=== PATIENT | female | born 1955 | race Caucasian/White ===

== ENCOUNTER → 2020-11-06 | Outpatient (CLI) | payer MEDICARE ==
[~2020-11-06] MED LIST: FUROSEMIDE40 MG PO; KLOR-CON M1010 MEQ PO; LEVOTHYROXINE50 MCG PO; LISINOPRIL2.5 MG PO; PROAIR HFA INH8.5 GM INH; REGADENOSON 0.4 MG/5 ML SYR IV ONE
== END ==
LOC: NM 09:58
PROVIDERS: ATTEND Internal Medicine Cardiovascular Disease
DX: I50.20 Unspecified systolic (congestive) heart failure (principal)
CPT/HCPCS: 78452; 93017; 93306; A9502; J2785